=== PATIENT | female | born 1945 | race African-American/Black ===

== ENCOUNTER 2017-12-10 16:51 | Emergency (ER) | payer OTHER, BC ==
[~2017-12-10] VITALS: Ht 154.9 cm; Wt 69.8 kg
[2017-12-10] MEDS ORDERED: FLEXERIL PO (18:54)
[2017-12-10 19:14] VITALS: BP 134/78
== END 2017-12-10 19:23 | disposition home or self-care (01) ==
LOC: ER 16:51
DX: S76.912A Strain of unspecified muscles, fascia and tendons at thigh level, left thigh, initial encounter (principal); X58.XXXA Exposure to other specified factors, initial encounter; Y93.89 Activity, other specified; Y92.89 Other specified places as the place of occurrence of the external cause; Y99.8 Other external cause status